=== PATIENT | male | born 1995 | race Two or more races ===

== ENCOUNTER 2020-08-13 16:37 | Emergency (ER) | payer MEDICAID, OTHER ==
[~2020-08-13] VITALS: Ht 172.7 cm; Wt 70.5 kg
[2020-08-13 16:45] VITALS: BP 160/93
[2020-08-13] MEDS ORDERED: TETanus/Pertussis (Acell)/Diphther VAC/PF (Tdap-Adult) 0.5ml syringe IMVAC ONE (17:30)
[2020-08-13] MEDS ORDERED: mupirocin 2% ointment 22GM TP ONE (17:30)
== END 2020-08-13 17:53 | disposition home or self-care (01) ==
LOC: ER 16:39
DX: S01.412A Laceration without foreign body of left cheek and temporomandibular area, initial encounter (principal); S01.511A Laceration without foreign body of lip, initial encounter; Z72.89 Other problems related to lifestyle; I10 Essential (primary) hypertension; Y04.2XXA Assault by strike against or bumped into by another person, initial encounter; Y93.89 Activity, other specified; Y92.89 Other specified places as the place of occurrence of the external cause; Y99.8 Other external cause status
CPT/HCPCS: 90471; 90715; 99284